=== PATIENT | male | born 1960 | race Native Hawaiian/Other Pacific Islander ===

== ENCOUNTER 2019-06-27 18:51 | Emergency (ER) | payer OTHER ==
[2019-06-27 19:33] VITALS: BP 139/94
[2019-06-27] MEDS ORDERED: TETANUS,DIPH,PERTUSS(ACELL) VACCINE 0.5 ML SYRINGE IM ONE (19:34)
--- NOTE | 2019-06-27 19:34 | Event Note ---
ED Screening Note ED Screening Note: language line used laceration right hand slipped and fell cut by piece of metal right hand pain unsure last tetanus This initial assessment/diagnostic orders/clinical plan/treatment(s) is/are subject to change based on patients health status, clinical progression and re- assessment by fellow clinical providers in the ED. Further treatment and workup at subsequent clinical providers discretion. Patient/guardian urged not to elope from the ED as their condition may be serious if not clinically assessed and managed. Initial orders include: XR right hand, tetanus
--- NOTE | 2019-06-27 20:04 | XRay Report ---
RIGHT HAND 3 VIEW(S) INDICATION / CLINICAL INFORMATION: laceration right hand COMPARISON: None available. FINDINGS: BONES / JOINT(S): No acute fracture or subluxation. No significant arthritis. SOFT TISSUES: Reported laceration is not radiographically evident. No embedded soft tissue gas or rad iopaque foreign body. Signer Name: Christopher Kidd MD Signed: 06/27/2019 8:00 PM Workstation Name: [id number]
[2019-06-27] MEDS ORDERED: HYDROcodone/ACETAMINOPHEN 5-325 MG TAB PO ONE (21:28)
--- NOTE | 2019-06-27 21:32 | Emergency Department Report ---
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 Abdomen pressure applied and field, there is no deformity no weakness range of motion is intact distal pulses intact M[employer]ESS [employer]ASER intact. ED Review of Systems ROS: Stated complaint: CUT RT HAND/LAC Other details as noted in HPI Constitutional: denies: chills, fever Eyes: denies: eye pain, eye discharge, vision change ENT: denies: ear pain, throat pain Respiratory: denies: cough, shortness of breath, wheezing Cardiovascular: denies: chest pain, palpitations Endocrine: no symptoms reported Gastrointestinal: denies: abdominal pain, nausea, diarrhea Genitourinary: denies: urgency, dysuria Musculoskeletal: denies: back pain, joint swelling, arthralgia Skin: other (laceration right dorsal hand flap 6 cm ). denies: rash, lesions Neurological: denies: headache, weakness, paresthesias Psychiatric: denies: anxiety, depression Hematological/Lymphatic: denies: easy bleeding, easy bruising ED Past Medical Hx - Past Medical History Previous Medical History?: No - Surgical History Past Surgical History?: No - Social History Smoking Status: Never Smoker Substance Use Type: None - Medications Home Medications: Home Medications Medication Instructions Recorded Confirmed Last Taken Type cephALEXin [Keflex] 500 mg PO Q8HR #30 cap 06/27/19 Unknown Rx traMADoL [Ultram] 50 mg PO Q6HR PRN #12 tablet 06/27/19 Unknown Rx Laceration Physical Exam - Exam General: Vital signs noted. No distress. Alert and acting appropriately. Wound Length (cm): 6 Laceration Location: Upper Extremity Laceration Exam: Yes Normal Distal CMS, No Foreign Body, No Exposed Tendon, Vessel, or Nerve, No Tendon Injury ED Course Vital Signs 06/27/19 19:32 Temperature 98 F Pulse Rate 74 Respiratory 18 Rate Blood Pressure 139/94 O2 Sat by Pulse 100 Oximetry - Laceration /Wound Repair Right Dorsal Wound Location: upper extremity Wound's Depth, Shape: superficial Wound Explored: clean Irrigated w/ Saline (ccs): 250 Betadine Prep?: Yes Anesthesia: 1% Lidocaine (3) Volume Anesthetic (ccs): 3 Wound Debrided: minimal Wound Repaired With: sutures Suture Size/Type: 4:0, proline Number of Sutures: 25 (running ) Layer Closure?: No Sterile Dressing Applied?: Yes Progress: wound cleaned with betadine solution, anesthesia with 1% lidocaine plan 3 cc, wound irrigated wtih 250 cc sterile saline , manually explored no foreign body xra noted no fracture no foreign body, wound closed with 4.0 proline x 25 sutures running , edges well approximated, all bleed controlled, pt and family members given wound care instructions. , pt tolerated procedure with minimal di stress. ED Medical Decision Making - Radiology Data Radiology results: report reviewed, image reviewed Findings [address] [address] XRay Report Signed Patient: TAMIKA BERG MR#: [id number] : 1960 Acct:[id number] Age/Sex: 59 / M ADM Date: 06/27/19 Loc: ED Attending Dr: Ordering Physician: DENIS MERCEDES Date of Service: 06/27/19 Procedure(s): XR hand 3+V RT Accession Number(s): [id number] cc: DENIS MERCEDES Fluoro Time In Minutes: RIGHT HAND 3 VIEW(S) INDICATION / CLINICAL INFORMATION: laceration right hand COMPARISON: None available. FINDINGS: BONES / JOINT(S): No acute fracture or subluxation. No significant arthritis. SOFT TISSUES: Reported laceration is not radiographically evident. No embedded soft tissue gas or radiopaque foreign body. Signer Name: Christopher Kidd MD Signed: 06/27/2019 8:00 PM Workstation Name: [id number] Transcribed By: DMB Dictated By: Christopher Kidd MD Electronically Authenticated By: Christopher Kidd MD Signed Date/Time: 06/27/191999 DD/ 58 TD/TT: - Medical Decision Making laceration repaired see procedure note Critical care attestation.: If time is entered above; I have spent that time in minutes in the direct care of this critically ill patient, excluding procedure time. ED Disposition Clinical Impression: Laceration of hand Qualifiers: Encounter type: initial encounter Foreign body presence: without foreign body Laterality: right Qualified Code(s): S61.411A - Laceration without foreign body of right hand, initial encounter Disposition: TO HOME OR SELFCARE Is pt being admited?: No Does the pt Need Aspirin: No Condition: Stable Instructions: Laceration (ED), Suture Care (ED) Prescriptions: cephALEXin [Keflex] 500 mg PO Q8HR #30 cap traMADoL [Ultram] 50 mg PO Q6HR PRN #12 tablet PRN Reason: Pain Referrals: [facility] [Outside] - 3-5 Days Forms: Work/School Release Form(ED) Time of Disposition: 21:38 Print Language: ITALIAN
== END 2019-06-27 22:03 | disposition home or self-care (01) ==
LOC: ED 18:51
DX: S61.411A Laceration without foreign body of right hand, initial encounter (principal); Z79.899 Other long term (current) drug therapy; W01.118A Fall on same level from slipping, tripping and stumbling with subsequent striking against other sharp object, initial encounter; Y93.89 Activity, other specified; Y92.89 Other specified places as the place of occurrence of the external cause; Y99.8 Other external cause status
CPT/HCPCS: 90471; 90715

== ENCOUNTER 2021-06-17 08:23 | Emergency (ER) | payer BC, OTHER ==
[2021-06-17] MEDS ORDERED: MORPHINE 4 MG/1 ML INJ IV ONE (09:00)
[2021-06-17] MEDS ORDERED: SODIUM CHLORIDE 0.9% 1000 ML 1,000 ML IV ONE (09:00)
[2021-06-17] MEDS ORDERED: CLINDAMYCIN 600 MG/50 mL 600 MG/50 ML BAG IV ONE (09:00)
[2021-06-17 09:33] LABS: Basophils # (Auto) 0.1 K/mm3 (0.0-0.1); Basophils % (Auto) 1.1 % (0.0-1.8); Eosinophils # (Auto) 0.8 K/mm3 (0.0-0.4); Eosinophils % (Auto) 14.6 % (0.0-4.3); Hematocrit 48.5 % (35.5-45.6); Hemoglobin 16.2 gm/dl (11.8-15.2); Lymphocytes # (Auto) 1.4 K/mm3 (1.2-5.4); Lymphocytes % (Auto) 24.1 % (13.4-35.0); Mean Corpuscular HGB Conc 33 % (32-34); Mean Corpuscular Volume 94 fl (84-94); Monocytes # (Auto) 0.5 K/mm3 (0.0-0.8); Monocytes % (Auto) 8.5 % (0.0-7.3); Platelet Count 275 K/mm3 (140-440); Red Blood Count 5.14 M/mm3 (3.65-5.03)
[2021-06-17 09:59] LABS: Alanine Aminotransferase 33 units/L (7-56); Albumin 3.9 g/dL (3.9-5); Blood Urea Nitrogen 12 mg/dL (9-20); Calcium 8.8 mg/dL (8.4-10.2); Hemolysis Index 31
[2021-06-17 10:02] LABS: BUN/Creatinine Ratio 17
--- NOTE | 2021-06-17 11:00 | Emergency Department Report ---
- General Chief complaint: Skin/Abscess/Foreign Body Stated complaint: RT ARM SWELLING BLEEDING AND PUS 2 MONTHS Time Seen by Provider: 06/17/21 08:53 Source: patient Mode of arrival: Ambulatory Limitations: Language Barrier - History of Present Illness Initial comments: This is a 61-year-old male nontoxic, well nourished in appearance, no acute signs of distress presents to the ED with c/o of redness and pain to right elbow area x 3 weeks. Patient stated that last few days had some drainage. Patient denies any fever, chills, nausea, vomiting, chest pain, shortness of breath, headache or stiff neck. Denies decreased range of motion of right elbow. Patient denies any allergies or significant past medical history. Patient's daughter is currently present at bedside for E[place]rean translation purposes. -: week(s) Location: RUE Severity: mild Severity scale (0 -10): 8 Quality: aching Consistency: constant Improves with: none Worsens with: none Associated symptoms: denies other symptoms Treatments Prior to Arrival: none - Related Data Previous Rx's Medication Instructions Recorded Last Taken Type cephALEXin [Keflex] 500 mg PO Q8HR #30 cap 06/27/19 Unknown Rx traMADoL [Ultram] 50 mg PO Q6HR PRN #12 tablet 06/27/19 Unknown Rx Clindamycin [Clindamycin CAP] 300 mg PO Q6H #28 capsule 06/17/21 Unknown Rx Allergies Allergy/AdvReac Type Severity Reaction Status Date / Time No Known Allergies Allergy Unverified 06/27/19 18:52 Abscess Boil HPI - HPI Chief Complaint: Skin/Abscess/Foreign Body Stated Complaint: RT ARM SWELLING BLEEDING AND PUS 2 MONTHS Time Seen by Provider: 06/17/21 08:53 Home Medications: Previous Rx's Medication Instructions Recorded Last Taken Type cephALEXin [Keflex] 500 mg PO Q8HR #30 cap 06/27/19 Unknown Rx traMADoL [Ultram] 50 mg PO Q6HR PRN #12 tablet 06/27/19 Unknown Rx Clindamycin [Clindamycin CAP] 300 mg PO Q6H #28 capsule 06/17/21 Unknown Rx Allergies/Adverse Reactions: Allergies Allergy/AdvReac Type Severity Reaction Status Date / Time No Known Allergies Allergy Unverified 06/27/19 18:52 ED Review of Systems ROS: Stated complaint: RT ARM SWELLING BLEEDING AND PUS 2 MONTHS Other details as noted in HPI Comment: All other systems reviewed and negative Constitutional: denies: chills, fever Eyes: denies: eye pain, eye discharge, vision change ENT: denies: ear pain, throat pain Respiratory: denies: cough, shortness of breath, wheezing Cardiovascular: denies: chest pain, palpitations Endocrine: no symptoms reported Gastrointestinal: denies: abdominal pain, nausea, diarrhea Genitourinary: denies: urgency, dysuria Musculoskeletal: denies: back pain, joint swelling, arthralgia Skin: denies: rash, lesions Neurological: denies: headache, weakness, paresthesias Psychiatric: denies: anxiety, depression Hematological/Lymphatic: denies: easy bleeding, easy bruising ED Past Medical Hx - Past Medical History Previous Medical History?: No - Surgical History Past Surgical History?: No - Social History Smoking Status: Never Smoker Substance Use Type: None - Medications Home Medications: Home Medications Medication Instructions Recorded Confirmed Last Taken Type cephALEXin [Keflex] 500 mg PO Q8HR #30 cap 06/27/19 Unknown Rx traMADoL [Ultram] 50 mg PO Q6HR PRN #12 tablet 06/27/19 Unknown Rx Clindamycin [Clindamycin CAP] 300 mg PO Q6H #28 capsule 06/17/21 Unknown Rx ED Physical Exam - General Limitations: Language Barrier General appearance: alert, in no apparent distress - Head Head exam: Present: atraumatic, normocephalic - Eye Eye exam: Present: normal appearance - Neck Neck exam: Present: normal inspection, full ROM. Absent: lymphadenopathy - Respiratory Respiratory exam: Absent: respiratory distress - Cardiovascular Cardiovascular Exam: Present: regular rate - Extremities Exam Extremities exam: Present: full ROM, tenderness, normal capillary refill. Absent: joint swelling - Expanded Upper Extremity Exam Right General: Present: normal inspection Shoulder Exam: Present: normal inspection, full ROM. Absent: tenderness, swelling Upper Arm exam: Present: normal inspection, full ROM. Absent: tenderness, swelling Elbow exam: Present: full ROM, tenderness, erythema. Absent: swelling, abrasion, laceration, ecchymosis, deformity, crepidus, dislocation, effusion, pain w/ pronation/supination, tenderness over radial head Forearm Wrist exam: Present: normal inspection, full ROM. Absent: tenderness, swelling, abrasion, laceration, ecchymosis, deformity, crepidus, dislocation, erythema, tenderness over anatomical snuff box, pain with axial thumb loading Hand Wrist exam: Present: normal inspection, full ROM. Absent: tenderness, swelling Vascular: Present: normal capillary refill. Absent: vascular compromise (Neuro vascular within normal limits) - Back Exam Back exam: Present: full ROM - Neurological Exam Neurological exam: Present: alert, oriented X3, normal gait - Psychiatric Psychiatric exam: Present: normal affect, normal mood - Skin Skin exam: Present: warm, dry, intact, normal color. Absent: rash ED Course Vital Signs 06/17/21 08:25 Temperature 97.5 F L Pulse Rate 63 Respiratory 18 Rate Blood Pressure 123/90 [Right] O2 Sat by Pulse 99 Oximetry - Reevaluation(s) Reevaluation #1: 06/17/21 11:00 Patient is speaking in full sentences with no signs of distress noted. - Consultations Consultation #1: 06/17/21 11:[address] Dickey paged and awaiting for response at this time. Consultation #2: 06/17/21 12:39 Patient has been consulted with Dr. Dickey about patient history, physical exam, and labs/imaging results and patient can be discharged on clindamycin with outpatient follow-up. ED Medical Decision Making - Lab Data Result diagrams: 06/17/21 09:16 06/17/21 09:16 - Radiology Data [facility] [address] [place] [address] Cat Scan Report Signed Patient: TAMIKA BERG MR#: [id number] : 1960 Acct:[id number] Age/Sex: 61 / M ADM Date: 06/17/21 Loc: ED Attending Dr: Ordering Physician: CHESTER DARLING NP Date of Service: 06/17/21 Procedure(s): CT upper extrem RT w con Accession Number(s): [id number] cc: CHESTER DARLING NP CT upper extrem RT w con INDICATION / CLINICAL INFORMATION: RIGHT elbow cellulitis with swelling, possible abscess (No Trauma involved). TECHNIQUE: CT images of the right elbow obtained following administration of 100 mL of Omnipaque [address] scans at this location are performed using CT dose reduction for ALARA by means of automated exposure control. COMPARISON: None available FINDINGS: BONES/JOINT(S): Mild cortical lucency of the proximal dorsal olecranon. Several small ossific fragments are present adjacent to this region at the triceps tendon insertion, may reflect enthesophytes or fragmentation related to osteomyelitis. No acute fracture or malalignment. No significant joint effusion. MUSCLES / TENDONS: Edematous appearance of the distal triceps adjacent to the olecranon. There is adjacent soft tissue stranding. No discrete organized collection identified. SOFT TISSUES: Soft tissue swelling and subcutaneous edema of the dorsal aspect of the elbow. No soft tissue gas or organized collection. ADDITIONAL FINDINGS: None. IMPRESSION: 1. Soft tissue swelling in the dorsal aspect of the elbow with edematous appearance of the distal triceps adjacent to the olecranon, likely reflecting cellulitis with myositis. No discrete organized collection. Olecranon bursitis is also suspected. 2. There is mild cortical lucency of the proximal dorsal olecranon, suspicious for osteomyelitis. Consider correlation with MRI. Signer Name: Leanna Mireles MD Signed: 06/17/2021 11:23 AM Workstation Name: [id number] Transcribed By: CARO Dictated By: LEANNA MIRELES MD Electronically Authenticated By: LEANNA MIRELES MD Signed Date/Time: 06/17/21 1123 DD/ 1116 TD/TT: - Medical Decision Making This is a [age]-year-old male that presents with cellulitis and osteomyelitis of right elbow. Patient is stable and was examined by me. There is no induration, fluctuance. No signs of abscess formation. The area has been outlined with a permanent marker and patient was instructed to observe symptoms of increased redness or swelling and to return to the ER if this does occur. I will discharge patient with clindamycin. Patient consulted with orthopedic surgery at this time which instructed patient to be discharged. Patient was referred to Follow-up with a orthopedic doctor in 2 days or if symptoms worsen and continue return to emergency room as soon as possible. At time of discharge, the patient does not seem toxic or ill in appearance. No acute signs of distress noted. Patient agrees to discharge treatment plan of care. No further questions noted by the patient. Daughter used for Eritrean translation purposes during interview, physical exam and treatment/discharge instructions. Critical care attestation.: If time is entered above; I have spent that time in minutes in the direct care of this critically ill patient, excluding procedure time. ED Disposition Clinical Impression: Cellulitis of right elbow, Elbow osteomyelitis, right Disposition: 01 HOME / SELF CARE / HOMELESS Is pt being admited?: No Does the pt Need Aspirin: No Condition: Stable Instructions: Osteomyelitis, Adult, Cellulitis, Adult Additional Instructions: Follow-up with a orthopedic doctor in 2 days or if symptoms worsen and continue return to emergency room as soon as possible. Prescriptions: Clindamycin [Clindamycin CAP] 300 mg PO Q6H #28 capsule Referrals: PRIMARY [facility]EMD [Primary Care Provider] - 3-5 Days JAKE DICKEY MD [Staff Physician] - 06/19/21 Forms: Work/School Release Form(ED) Time of Disposition: 12:44 Print Language: EMIRATI
--- NOTE | 2021-06-17 11:28 | Cat Scan Report ---
CT upper extrem RT w con INDICATION / CLINICAL INFORMATION: RIGHT elbow cellulitis with swelling, possible abscess (No Trauma involved). TECHNIQUE: CT images of the right elbow obtained following administration of 100 mL of Omnipaque [address] scans at this location are performed using CT dose reduction for ALARA by means of automated exposure control. COMPARISON: None available FINDINGS: BONES/JOINT(S): Mild cortical lucency of the proximal dorsal olecranon. Several small ossific fragmen ts are present adjacent to this region at the triceps tendon insertion, may reflect enthesophytes or fragmentation related to osteomyelitis. No acute fracture or malalignment. No significant joint effus ion. MUSCLES / TENDONS: Edematous appearance of the distal triceps adjacent to the olecranon. There is adj acent soft tissue stranding. No discrete organized collection identified. SOFT TISSUES: Soft tissue swelling and subcutaneous edema of the dorsal aspect of the elbow. No soft tissue gas or organized collection. ADDITIONAL FINDINGS: None. IMPRESSION: 1. Soft tissue swelling in the dorsal aspect of the elbow with edematous appearance of the distal tri ceps adjacent to the olecranon, likely reflecting cellulitis with myositis. No discrete organized col lection. Olecranon bursitis is also suspected. 2. There is mild cortical lucency of the proximal dorsal olecranon, suspicious for osteomyelitis. 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 Signer Name: Emil Mireles MD Signed: 06/17/2021 11:23 AM Workstation Name: [id number]
[2021-06-17 13:01] VITALS: BP 127/77
== END 2021-06-17 13:01 | disposition home or self-care (01) ==
LOC: ED 08:23
DX: L03.113 Cellulitis of right upper limb (principal); M86.8X2 Other osteomyelitis, upper arm
CPT/HCPCS: 36415; 73201; 80053; 85025; 96365; 96366; 96375; 99284; J2270; J7030; J7502; Q9967; Q0162

== ENCOUNTER 2021-06-27 10:09 | Outpatient (CLI) | payer BC ==
[2021-06-27] MEDS ORDERED: LIDOCAINE (4%) 40 MG/ML TOPICAL SOLN 50 ML BOTTLE TP ONE (10:23)
== END 2021-06-27 10:10 | disposition home or self-care (01) ==
LOC: WOUND 10:09
PROVIDERS: ATTEND Surgery
DX: L03.113 Cellulitis of right upper limb (principal); S51.001A Unspecified open wound of right elbow, initial encounter; M86.431 Chronic osteomyelitis with draining sinus, right radius and ulna; Z88.8 Allergy status to other drugs, medicaments and biological substances; Z79.899 Other long term (current) drug therapy; X58.XXXA Exposure to other specified factors, initial encounter; Y93.89 Activity, other specified; Y92.89 Other specified places as the place of occurrence of the external cause; Y99.8 Other external cause status
CPT/HCPCS: 11042; 82962; G0463; 99214

== ENCOUNTER 2021-07-04 09:23 | Outpatient (CLI) | payer BC ==
[2021-07-04] MEDS ORDERED: LIDOCAINE (4%) 40 MG/ML TOPICAL SOLN 50 ML BOTTLE TP SCH (10:00)
== END 2021-07-04 09:24 | disposition home or self-care (01) ==
LOC: WOUND 09:23
PROVIDERS: ATTEND Surgery
DX: L03.113 Cellulitis of right upper limb (principal); M86.431 Chronic osteomyelitis with draining sinus, right radius and ulna; Z88.8 Allergy status to other drugs, medicaments and biological substances; Z79.899 Other long term (current) drug therapy
CPT/HCPCS: 99214; G0463

== ENCOUNTER 2021-07-10 09:40 | Outpatient (CLI) | payer BC ==
--- NOTE | 2021-07-10 14:44 | Magnetic Resonance Report ---
MRI RIGHT ELBOW WITHOUT CONTRAST INDICATION / CLINICAL INFORMATION: CHRONIC OSTEOMYELITIS. TECHNIQUE: Multiplanar, multisequence MR images were obtained. COMPARISON: None available. FINDINGS: ULNAR COLLATERAL LIGAMENT: No significant abnormality. RADIAL COLLATERAL LIGAMENT: No significant abnormality. LATERAL ULNAR COLLATERAL LIGAMENT: No significant abnormality. COMMON FLEXOR TENDON: Moderate tendinosis COMMON EXTENSOR TENDON: Moderate grade partial thickness tear BICEPS TENDON: No significant abnormality. TRICEPS TENDON: Moderate to high-grade partial thickness tear distal triceps tendon secondary to the olecranon osteomyelitis ARTICULAR CARTILAGE: No significant abnormality. JOINT SPACE: No effusion. No synovitis. No intra-articular bodies. BONES: No fracture. Moderate hypointense T1 and hyperintense T2 edema within the olecranon process ch aracteristic for osteomyelitis with cortical erosions. No osseous lesion. CUBITAL TUNNEL / ULNAR NERVE: No significant abnormality. SUBCUTANEOUS SOFT TISSUES: No significant abnormality. ADDITIONAL FINDINGS: None. IMPRESSION: 1. Olecranon osteomyelitis with moderate grade partial thickness tear distal triceps tendon 2. Moderate grade partial thickness tear common extensor tendon 3. Moderate common flexor tendinosis Signer Name: Jason Haywood MD Signed: 07/10/2021 2:39 PM Workstation Name: [email or web address]
== END 2021-07-10 09:41 | disposition home or self-care (01) ==
LOC: MRI 09:40
PROVIDERS: ATTEND Surgery
DX: S46.311A Strain of muscle, fascia and tendon of triceps, right arm, initial encounter (principal); M86.431 Chronic osteomyelitis with draining sinus, right radius and ulna; M86.041 Acute hematogenous osteomyelitis, right hand; X58.XXXA Exposure to other specified factors, initial encounter; Y93.89 Activity, other specified; Y92.89 Other specified places as the place of occurrence of the external cause; Y99.8 Other external cause status

== ENCOUNTER 2021-07-11 09:50 | Outpatient (CLI) | payer BC ==
[2021-07-11] MEDS ORDERED: LIDOCAINE (4%) 40 MG/ML TOPICAL SOLN 50 ML BOTTLE TP ONE (10:00)
== END 2021-07-11 09:51 | disposition home or self-care (01) ==
LOC: WOUND 09:50
PROVIDERS: ATTEND Surgery
DX: L03.113 Cellulitis of right upper limb (principal); M86.431 Chronic osteomyelitis with draining sinus, right radius and ulna; Z88.8 Allergy status to other drugs, medicaments and biological substances; Z79.899 Other long term (current) drug therapy
CPT/HCPCS: 99213; G0463

== ENCOUNTER 2021-08-07 11:40 | Outpatient (CLI) | payer OTHER ==
--- NOTE | 2021-08-07 13:16 | XRay Report ---
CHEST 2 VIEWS INDICATION: M86.431. Chronic osteomyelitis with draining sinus. COMPARISON: none FINDINGS: Support devices: None. Heart: Within normal limits. Lungs/pleura: No acute air space or interstitial disease. No pneumothorax. Additional findings: None. IMPRESSION: No acute findings. Signer Name: Juan Castaneda Jr, MD Signed: 08/07/2021 1:11 PM Workstation Name: [id number]
== END 2021-08-07 11:41 | disposition home or self-care (01) ==
LOC: XRAY 11:40
PROVIDERS: ATTEND Surgery
DX: M86.431 Chronic osteomyelitis with draining sinus, right radius and ulna (principal)
CPT/HCPCS: 71046